=== PATIENT | male | born 1945 | race Caucasian/White ===

== ENCOUNTER → 2016-10-11 | Outpatient (CLI) | payer MEDICARE, BC ==
[~2016-10-11] MED LIST: CALCIUM ASCORB500 MG PO; MUCINEX 60600 MG/TA1 PO; OMEGA 31000 MG PO; ZYRTEC 10MG10 MG PO
== END ==
LOC: ZCOL.LAB 14:46
DX: Z01.812 Encounter for preprocedural laboratory examination (principal); Z86.14 Personal history of Methicillin resistant Staphylococcus aureus infection

== ENCOUNTER 2018-12-18 11:02 | Emergency (ER) | payer MEDICARE, BC ==
[2006-03-22 11:53] VITALS: BP 146/87
[~2018-12-18] VITALS: Ht 185.4 cm; Wt 81.4 kg
[2018-12-18 11:10] VITALS: BP 126/64; TEMP 97.7
[2018-12-18] MEDS ORDERED: ZESTRIL 5MG5 MG (11:32)
[2018-12-18] MEDS ORDERED: TOPROL XL 25MG25 MG (11:32)
[2018-12-18] MEDS ORDERED: LIPITOR 80MG80 MG (11:33)
[2018-12-18 11:48] VITALS: PULSE 89
== END 2018-12-18 11:49 | disposition home or self-care (01) ==
LOC: COL.ER 11:02
DX: K40.90 Unilateral inguinal hernia, without obstruction or gangrene, not specified as recurrent (principal); I25.10 Atherosclerotic heart disease of native coronary artery without angina pectoris; I10 Essential (primary) hypertension; Z90.89 Acquired absence of other organs

== ENCOUNTER 2018-12-31 10:23 | Day surgery (SDC) | payer MEDICARE, BC ==
[2006-03-22 11:53] VITALS: BP 146/87
[~2018-12-31] VITALS: Ht 185.4 cm; Wt 80.5 kg
[~2018-12-31 10:23] MED LIST changes: +LIPITOR 80MG80 MG; +MASON NATURAL1200 MG PO; -OMEGA 31000 MG PO; +TOPROL XL 25MG25 MG PO; +ZESTRIL 5MG5 MG PO
[2018-12-31 11:49] VITALS: BP 111/72; PULSE 61; TEMP 98.1
[2018-12-31] MEDS ORDERED: ASPIRIN E.C. 8181 MG PO (11:56)
[2018-12-31] MEDS ORDERED: TRIAMCINOLONE A15 GM TP (11:57)
[2018-12-31] MEDS ORDERED: MOBIC 7.5MG7.5 MG PO (11:57)
[2018-12-31] MEDS ORDERED: VOLTAREN GEL 1%1 TU TP (11:58)
[2018-12-31] MEDS ORDERED: UVA URSI PO (11:59)
[2018-12-31] MEDS ORDERED: SUPER BETA PO (11:59)
[2018-12-31] MEDS ORDERED: MULTI VITAMINS1 TAB PO (12:00)
[2018-12-31] MEDS ORDERED: MIRALAX PA17 GM/Dose PO (12:00)
[2018-12-31 15:00] VITALS: BP 137/64; PULSE 64; TEMP 97.7
--- NOTE | 2018-12-31 15:00 | NUR ---
Pt to [facility] bay 3 via cart from PACU. Pt drowsy but awake. Pt denies pain or nausea. Muffin and pepsi given per pt request. Family in room. Bandaids to abdomen x3 are clean, dry, and intact. Will continue to monitor. Call light within reach.
[2018-12-31 15:15] VITALS: BP 140/60; PULSE 69
--- NOTE | 2018-12-31 15:15 | NUR ---
Pt tolerating food and fluids without difficulties. Family leaving to [facility] prescriptions and will be back. Call light within reach.
[2018-12-31 15:30] VITALS: BP 146/71; PULSE 68
--- NOTE | 2018-12-31 15:30 | NUR ---
Pt resting. More soda given. Will continue to monitor.
[2018-12-31 15:45] VITALS: BP 159/65; PULSE 66
--- NOTE | 2018-12-31 15:45 | NUR ---
Pt c/o soreness to RLQ and upper abdomen. Pt rates pain 3/10. Will provide pain medication as to help with pain for car ride home. Pt ok with this. Call light within reach.
--- NOTE | 2018-12-31 15:55 | NUR ---
Tylenol 1000mg po and Oxycodone 5mg po given per orders. Will continue to monitor.
[2018-12-31] MEDS ORDERED: TYLENOL 500MG500 MG PO (16:01)
[2018-12-31] MEDS ORDERED: ROXICODONE 55 MG/TAB PO (16:02)
[2018-12-31 16:15] VITALS: BP 137/73; PULSE 66
--- NOTE | 2018-12-31 16:15 | NUR ---
Pt continues to rest. Pt dozes on and off. Pt denies needs at this time.
--- NOTE | 2018-12-31 16:45 | NUR ---
Pt up to restroom with stand by assistance. Gait steady. Pt unable to void. Pt back to room. Bladder scan done with only 65ml shown. notified and orders to go ahead and DC given. Pt and family voice understanding. Pt reports pain is tolerable.
--- NOTE | 2018-12-31 17:00 | NUR ---
Discharge instructions reviewed. Pt voices understanding. IV site discontinued with all parts intact. Pt up to dress with 's assistance. Call light within reach.
--- NOTE | 2018-12-31 17:10 | NUR ---
Pt escorted to private car via wheel chair. Pt accompanied home by his son and .
== END 2018-12-31 17:10 | disposition home or self-care (01) ==
LOC: SDCO 10:23
DX: K40.90 Unilateral inguinal hernia, without obstruction or gangrene, not specified as recurrent (principal); Z79.82 Long term (current) use of aspirin; Z95.5 Presence of coronary angioplasty implant and graft; I10 Essential (primary) hypertension; E78.00 Pure hypercholesterolemia, unspecified; Z80.8 Family history of malignant neoplasm of other organs or systems; Z88.3 Allergy status to other anti-infective agents; Z88.8 Allergy status to other drugs, medicaments and biological substances; I25.2 Old myocardial infarction
CPT/HCPCS: C1781; J0690; J1100; J2405; J2704; J2710; J3010; J7120

== ENCOUNTER 2019-10-17 14:30 | Emergency (ER) | payer MEDICARE, BC ==
[2006-03-22 11:53] VITALS: BP 146/87
[~2019-10-17] VITALS: Ht 185.4 cm; Wt 84.9 kg
[~2019-10-17 14:30] MED LIST changes: +ASPIRIN E.C. 8181 MG PO; +MIRALAX PA17 GM/Dose PO; +MOBIC 7.5MG7.5 MG PO; +MULTI VITAMINS1 TAB PO; +ROXICODONE 55 MG/TAB PO; +SUPER BETA PO; +TRIAMCINOLONE A15 GM TP; +TYLENOL 500MG500 MG PO; +UVA URSI PO; +VOLTAREN GEL 1%1 TU TP
[2019-10-17 14:35] VITALS: TEMP 98.3
[2019-10-17] MEDS ORDERED: ALEVE 220MG220 MG PO (14:47)
[2019-10-17] MEDS ORDERED: NORCO 325 MG-51 TAB PO (15:58)
[2019-10-17 16:15] VITALS: BP 117/65; PULSE 62
== END 2019-10-17 16:18 | disposition home or self-care (01) ==
LOC: COL.ER 14:30
DX: S22.32XA Fracture of one rib, left side, initial encounter for closed fracture (principal); S43.102A Unspecified dislocation of left acromioclavicular joint, initial encounter; I10 Essential (primary) hypertension; E78.5 Hyperlipidemia, unspecified; Z95.5 Presence of coronary angioplasty implant and graft; Z79.82 Long term (current) use of aspirin; W17.89XA Other fall from one level to another, initial encounter
CPT/HCPCS: A9284

== ENCOUNTER 2020-01-07 11:16 | Inpatient (IN) | payer MEDICARE, BC ==
[~2020-01-07] VITALS: Ht 185.4 cm; Wt 81.6 kg
[~2020-01-07 11:16] MED LIST changes: +ALEVE 220MG220 MG PO; +NORCO 325 MG-51 TAB PO
[2020-01-07 12:01] LABS: PROTHROMBIN TIME 11.8 SECONDS (9.7-12.8)
[2020-01-07 12:04] LABS: PARTIAL THROMBOPLASTIN TIME 32.8 SECONDS (26.0-37.0)
[2020-01-07 12:08] LABS: ALANINE AMINOTRANSFERASE 33 U/L (4-49); ALBUMIN 3.7 gm/dL (3.5-5.0); ALKALINE PHOSPHATASE 113 U/L (50-136); ANION GAP 7 mmol/L (7-16); AST,SGOT 55 U/L (15-37); BASO % 0.3 % (0.0-2.0); BILIRUBIN,TOTAL 1.3 mg/dL (0.0-1.0); BLOOD UREA NITROGEN 32 mg/dL (9-20); CALCIUM 9.2 mg/dL (8.4-10.2); CARBON DIOXIDE 24 mmol/L (22-30); CHLORIDE 105 mmol/L (98-107); CREATININE, serum 1.23 (0.66-1.25); EOS # 0.2 (0.0-0.7); EOS % 1.6 % (0-4.0); GLUCOSE 168 mg/dL (74-106); GRAN # 9.3 (1.4-6.5); GRAN % 75.2 % (42.2-75.2); HEMATOCRIT 38.9 % (42.0-52.0); HEMOGLOBIN 12.8 g/dl (13.5-18.0); LIPASE 455 U/L (23-300); LYMPH # 1.5 (1.2-3.4); MAGNESIUM 2.2 mg/dL (1.6-2.3); MEAN CELL VOLUME 92 fl (80.0-100.0); MEAN CORPUSCULAR HEMOGLOBIN 30 pg (27.0-31.0); MEAN CORPUSCULAR HGB CONC 33 g/dl (33.0-37.0); MEAN PLATELET VOLUME 9.7 fl (7.4-10.4); MONO # 1.3 (0.1-0.6); MONO % 10.6 % (1.7-9.3); PLATELET COUNT 188 K/mm3 (130-400); POTASSIUM 4.6 mmol/L (3.4-5.0); RED BLOOD COUNT 4.23 M/mm3 (4.20-5.60); REDCELL DISTRIBUTION WIDTH-CV 12.7 % (11.5-14.5); SODIUM 137 mmol/L (137-145); TOTAL PROTEIN 6.5 gm/dL (6.4-8.2)
[2020-01-07 12:22] LABS: TROPONIN-I < 0.012 ng/mL (0.000-0.035)
[2020-01-07 13:16] LABS: COLLECTION METHOD CLEAN CATCH
[2020-01-07 13:45] LABS: MUCOUS Present /lpf; PH 5 (5-8); SQUAMOUS EPITHELIAL None Seen /hpf; URINE APPEARANCE Clear; URINE BACTERIA Rare /hpf; URINE BILIRUBIN Negative (NEGATIVE); URINE BLOOD Negative (NEGATIVE); URINE COLOR Yellow; URINE GLUCOSE Negative (NEGATIVE); URINE KETONE Negative (NEGATIVE); URINE LEUKOCYTE ESTERASE Negative (NEGATIVE); URINE NITRATE Negative (NEGATIVE); URINE PROTEIN(semi-quant) Negative (NEGATIVE); URINE UROBILINOGEN Negative (NEGATIVE)
[2020-01-07 15:50] VITALS: BP 119/68; PULSE 57; TEMP 97.6
--- NOTE | 2020-01-07 17:13 | NUR ---
Patient alert and oriented, answers questions appropriately. See assessment. Lungs decreased in LLL, clear in all other lobes. No c/o SOA, no use of accessory muscles noted. Chest tube in place to waterseal to LLL, dressing intact. Chest tube protocol reviewed with patient. Vaseline gauze, gauze, sterile water and clamps at bedside. No c/o at this time.
--- NOTE | 2020-01-07 17:35 | NUR ---
850ml bloody drainage recorded from chest tube. Bleeding noted at chest tube site, pressure dressing reinforced.
[2020-01-07 18:35] LABS: HEMATOCRIT 33.8 % (42.0-52.0)
--- NOTE | 2020-01-07 19:00 | NUR ---
DRESSING TO LEFT CHEST TUBE SITE LEAKING, CHANGED AND PRESSURE DRSG APPLIED. LEFT CHEST TUBE TO WATERSEAL WITH GOOD TIDALING WITH INSPIRATION.
[2020-01-07 20:50] VITALS: BP 109/51; PULSE 55; TEMP 97.5
--- NOTE | 2020-01-07 21:00 | NUR ---
PT AWAKE, ALERT AND ORIENTED X4. DRSG REMAINS DRY TO LEFT CHEST TUBE SITE. SL X3, FLUSHED ALL AT THIS TIME. DENIES NEEDS AT THIS TIME. REVIEWED HOME MEDS AND CALLED DR FLOYD FOR DIET CHANGE AND RENEW OF HOME MEDS. PT NOW GENERAL DIET.
[2020-01-07 23:23] VITALS: BP 114/54; PULSE 61; TEMP 97.9
--- NOTE | 2020-01-08 00:05 | NUR ---
PT AWAKE, COMPLAINS OF BACK PAIN, LEFT CHEST TUBE PAIN. MEDICATED WITH NORCO 1 TAB AT THIS TIME. PT IS ALERT AND ORIENTED X4.
[2020-01-08 03:46] VITALS: BP 104/58; PULSE 56; TEMP 97.6
--- NOTE | 2020-01-08 06:00 | NUR ---
Has 120cc of drainage from chest tube this shift. Dressing remains dry. Denies pain at this time.
[2020-01-08 06:29] LABS: HEMOGLOBIN 10.9 g/dl (13.5-18.0)
[2020-01-08 06:30] LABS: HEMATOCRIT 33.4 % (42.0-52.0)
[2020-01-08 07:16] VITALS: BP 120/59; PULSE 69; TEMP 97.3
--- NOTE | 2020-01-08 08:00 | NUR ---
Patient called to report bleeding from his chest tube site. Upon inspection dressing was mostly intact, blood was draining along the tube. Reinforced that area of the dressing and helped patient clean up. Patient denies pain or further needs at this time, call light within reach.
--- NOTE | 2020-01-08 12:08 | NUR ---
First visit from the vice president of procurement. No needs right now.
[2020-01-08 12:12] VITALS: BP 108/60; PULSE 62; TEMP 98.7
--- NOTE | 2020-01-08 14:40 | NUR ---
Computer Operations Specialist met with patient to discuss discharge planning. Patient lives out by [address] with his , [employer] (ph#[phone] or [phone]). Patient sees Dr. Velásquez for primary care and obtains medications from [facility] with no difficulties. Patient does not use any DME and reports independence with ADLS. Patient states his DPOA-HC is his , [employer] then it goes to his three children. Patient's son Miguel lives by [place], his son Thee lives in [place], and his daughter Kay lives near [place], [place]. Patient plans to return home upon discharge with [employer] providing transportation. No additional needs at this time.
--- NOTE | 2020-01-08 16:44 | NUR ---
Dressing became saturated and began leaking. Dressing changed and tube anchored to skin with foam tape. Total output today has been approximately 50 ml. Patient continues to deny pain unless coughing or sneezing. Denies further needs at this time, call light within reach.
[2020-01-08 17:21] VITALS: BP 121/49; PULSE 64; TEMP 99.8
--- NOTE | 2020-01-08 18:20 | NUR ---
Chest tube removed by Dr. Posadas. Occlusive dressing in place, dressing is CDI. Patient denies pain or needs at this time, call light within reach.
[2020-01-08 20:57] VITALS: BP 125/57; PULSE 61; TEMP 98.2
[2020-01-08 23:46] VITALS: BP 109/56; PULSE 63; TEMP 98
[2020-01-09 03:14] VITALS: BP 133/50; PULSE 66; TEMP 97.5
--- NOTE | 2020-01-09 04:17 | NUR ---
INT to left AC and right AC discontinued at about 2100 last evening. Catheters intact. INT to DEVON left in place until discharge. Telemetry orders discontinued, so this was removed as well. Occlusive dressing to left chest noted. Clean, dry, and intact. Lung sounds clear. Denies any pain throughout the night. Noted to sleep well. Will continue to monitor patient.
[2020-01-09 08:01] VITALS: BP 146/115; PULSE 63; TEMP 97.6
--- NOTE | 2020-01-09 09:45 | NUR ---
Patient alert and oriented, answers questions appropriately. See assessment. Lungs CTA, no use of accessory muscles noted. VSS. No use of oxygen needed. Previous chest tube site with dressing CDI. No c/o pain or discomfort.
--- NOTE | 2020-01-09 10:41 | NUR ---
Patients' called several times, requests that patient not be discharged for several days r/t doesn't not think patient will tell her or their children if he is not feeling well. Relayed to that patient has no reason to remain in hospital and Dr Posadas will likely be discharging patient today. becomes annoyed, states "Can you give him a medication to make him sleepy so he can't do anything?" Relayed to that we cannot send patient home with medications to make him drowsy, especially if they are not needed. then states "Well, what are you going to do if he gets home, goes back doing work and gets hurt again?" Patient also requests that Dr Posadas be notified that patient does not listen to her and will do whatever he wants. Relayed to that patient is alert and oriented and able to make his own decisions, we can suggest what we would like him to do upon discharge, but it was his decision to comply. continues to be irate and request patient be kept in the hospital until he can "do what he is suppose to".
[2020-01-09 11:53] VITALS: BP 122/64; PULSE 58; TEMP 97.9
--- NOTE | 2020-01-09 13:45 | NUR ---
Discharge instructions reviewed with patient, verbalized understanding. Discharged ambulatory to auto/home with family at 1345.
== END 2020-01-09 13:45 | disposition home or self-care (01) | DRG 200 ==
LOC: COL.ER 11:16 → MEDICAL 14:00 → COL.ER 14:00 → MEDICAL 01-09 13:45
PROVIDERS: Emergency Medicine; ADMIT Surgery
PROC: 0W9B30Z Drainage of Left Pleural Cavity with Drainage Device, Percutaneous Approach (ICD-10-PCS; principal; 2020-01-07)
DX: S27.1XXA Traumatic hemothorax, initial encounter (principal); S22.029A Unspecified fracture of second thoracic vertebra, initial encounter for closed fracture; I95.9 Hypotension, unspecified; I25.10 Atherosclerotic heart disease of native coronary artery without angina pectoris; W19.XXXA Unspecified fall, initial encounter
CPT/HCPCS: J7030; J7120; Q9967

== ENCOUNTER 2020-07-11 13:21 | Emergency (ER) | payer MEDICARE, BC ==
[2006-03-22 11:53] VITALS: BP 146/87
[~2020-07-11] VITALS: Ht 185.4 cm; Wt 82.3 kg
[2020-07-11 13:28] VITALS: TEMP 97.9
[2020-07-11] MEDS ORDERED: MEDROL 4MG DOSPA4 MG PO (14:45)
[2020-07-11 15:00] VITALS: BP 141/75; PULSE 78
== END 2020-07-11 15:05 | disposition home or self-care (01) ==
LOC: COL.ER 13:21
DX: M54.16 Radiculopathy, lumbar region (principal); I10 Essential (primary) hypertension; Z79.82 Long term (current) use of aspirin; X50.9XXA Other and unspecified overexertion or strenuous movements or postures, initial encounter
CPT/HCPCS: J1100

== ENCOUNTER → 2020-08-16 | Outpatient (CLI) | payer MEDICARE, BC ==
[2006-03-22 11:53] VITALS: BP 146/87
[~2020-08-16] MED LIST changes: +MEDROL 4MG DOSPA4 MG PO; -MULTI VITAMINS1 TAB PO; +ONE-A-DAY ESSE1 EACH PO; +PROSVENT PO; +TYLENOL PM EXTR1 TA1 PO; +[UNRECOGNIZED DRUG - OTHER] PO
[2020-08-16 14:01] VITALS: BP 139/72; PULSE 658
[2020-08-16 14:54] VITALS: BP 146/83; PULSE 62
== END ==
LOC: COL.RAD 13:30
DX: M51.36 Other intervertebral disc degeneration, lumbar region (principal)
CPT/HCPCS: J3301

== ENCOUNTER → 2021-02-10 | Outpatient (CLI) | payer MEDICARE, BC ==
[2006-03-22 11:53] VITALS: BP 146/87
[~2021-02-10] VITALS: Ht 185.4 cm; Wt 80.8 kg
[~2021-02-10] MED LIST changes: +CORICIDIN COUGH1 TAB PO; +CURCUMIN95% PO
[2021-02-10 06:49] VITALS: BP 118/71; PULSE 62
[2021-02-10 08:26] VITALS: BP 146/84; PULSE 60
== END ==
LOC: COL.RAD 06:26
DX: M51.36 Other intervertebral disc degeneration, lumbar region (principal)
CPT/HCPCS: J3301

== ENCOUNTER → 2021-02-24 | Outpatient (CLI) | payer MEDICARE, BC ==
[2006-03-22 11:53] VITALS: BP 146/87
[~2021-02-24] VITALS: Ht 185.4 cm; Wt 80.3 kg
[2021-02-24 07:25] VITALS: BP 130/71; PULSE 61
[2021-02-24 08:12] VITALS: BP 126/77; PULSE 57
== END ==
LOC: COL.RAD 06:30
DX: M54.31 Sciatica, right side (principal)
CPT/HCPCS: J3301

== ENCOUNTER 2021-10-06 11:43 | Inpatient (IN) | payer MEDICARE, BC ==
[~2021-10-06] VITALS: Ht 185.4 cm; Wt 83.4 kg
[2021-10-06 14:56] LABS: BASO % 0.3 % (0.0-2.0); EOS # 0.1 K/mm3 (0.0-0.7); EOS % 0.7 % (0.0-4.0); GRAN # 8.5 K/mm3 (1.4-6.5); GRAN % 82.8 % (42.2-75.2); HEMATOCRIT 38.7 % (42.0-52.0); HEMOGLOBIN 12.5 g/dl (13.5-18.0); LYMPH # 0.6 K/mm3 (1.2-3.4); LYMPH % 6.1 % (20.0-51.0); MEAN CELL VOLUME 91 fl (80.0-100.0); MEAN CORPUSCULAR HEMOGLOBIN 29 pg (27-31); MEAN CORPUSCULAR HGB CONC 32 g/dl (33.0-37.0); MEAN PLATELET VOLUME 9.5 fl (7.4-10.4); MONO % 9.7 % (1.7-9.3); PLATELET COUNT 183 K/mm3 (130-400); RED BLOOD COUNT 4.26 M/mm3 (4.20-5.60); REDCELL DISTRIBUTION WIDTH-CV 12.6 % (11.5-14.5)
[2021-10-06 15:00] LABS: INR 1.1 (0.8-3.0); PROTHROMBIN TIME 12.2 SECONDS (9.7-12.8)
[2021-10-06 15:17] LABS: ALBUMIN 3.4 gm/dL (3.4-4.8); CALCIUM 8.7 mg/dL (8.4-10.2); CREATININE, serum 0.81 mg/dL (0.72-1.25); POTASSIUM 4.2 mmol/L (3.5-4.5); TOTAL PROTEIN 6.4 gm/dL (6.2-8.1)
[2021-10-06 15:30] VITALS: BP 151/61; PULSE 53; TEMP 98.1
--- NOTE | 2021-10-06 15:30 | NUR ---
PATIENT ARRIVED TO FLOOR FROM ER WITH LEFT HIP FX. A&O. VSS. LLE IS EXTERNALLY ROTATED AND SHORTENED. PATIENT REPORTS MINIMAL PAIN AT REST BUT HAS SHARP PAINS WITH MOVEMENT. ER GAVE PAIN MEDS SHORTLY BEFORE TRANSFER TO FLOOR. ORTHO SAW PATIENT IN ER. SURGERY PENDING IN AM. AHA DIET, NPO AFTER MIDNIGHT. RIGHT AC IV TO INT. STEWART TO DD WITH SMALL AMOUNTS OF KESHAWN COLORED URINE NOTED. SCD'S TO BLE. POSITIVE PEDAL PULSES TO BLE. HEAD TO TOE ASSESSMENT COMPLETE. ORIENTED TO ROOM. AT BEDSIDE. NEW ORDERS FOR TELE, PLACED. NO OTHER NEEDS AT THIS TIME. CALL LIGHT IN REACH.
[2021-10-06 19:21] LABS: COLLECTION METHOD CLEAN CATCH
[2021-10-06 19:32] LABS: MUCOUS Present (NOT PRESENT); PH 7 (5-8); SQUAMOUS EPITHELIAL None Seen /hpf (0-10); URINE APPEARANCE Cloudy (CLEAR/HAZY); URINE BACTERIA Rare /hpf (NONE SEEN); URINE BILIRUBIN Negative (NEGATIVE); URINE BLOOD 1+ (NEGATIVE); URINE COLOR Yellow (YELLOW); URINE GLUCOSE Negative (NEGATIVE); URINE KETONE Trace (NEGATIVE); URINE LEUKOCYTE ESTERASE Negative (NEGATIVE); URINE NITRATE Negative (NEGATIVE); URINE PROTEIN(semi-quant) 1+ (NEGATIVE); URINE UROBILINOGEN Negative (NEGATIVE)
--- NOTE | 2021-10-06 20:10 | NUR ---
Pt. laying in bed. Pt. is A&OX3, assessment complete. INT to rt. ac patent. Pt. denies pain or other needs, call light within reach.
[2021-10-06 20:15] VITALS: BP 133/67; PULSE 74; TEMP 97.9
[2021-10-06 23:59] VITALS: BP 123/59; PULSE 62; TEMP 98.1
[2021-10-07] VITALS (10 sets, daily range): BP systolic 106–142; BP diastolic 56–77; PULSE 59–81; TEMP 97.9–98.6
[2021-10-07 07:39] LABS: BASO % 0.2 % (0.0-2.0); EOS # 0.3 K/mm3 (0.0-0.7); EOS % 4.1 % (0.0-4.0); GRAN # 5.1 K/mm3 (1.4-6.5); GRAN % 61.5 % (42.2-75.2); HEMATOCRIT 37.2 % (42.0-52.0); HEMOGLOBIN 11.9 g/dl (13.5-18.0); LYMPH # 1.3 K/mm3 (1.2-3.4); LYMPH % 15.4 % (20.0-51.0); MEAN CELL VOLUME 94 fl (80.0-100.0); MEAN CORPUSCULAR HEMOGLOBIN 30 pg (27-31); MEAN CORPUSCULAR HGB CONC 32 g/dl (33.0-37.0); MONO # 1.5 K/mm3 (0.1-0.6); MONO % 18.4 % (1.7-9.3); PLATELET COUNT 169 K/mm3 (130-400); RED BLOOD COUNT 3.97 M/mm3 (4.20-5.60); REDCELL DISTRIBUTION WIDTH-CV 12.7 % (11.5-14.5)
[2021-10-07 08:05] LABS: CALCIUM 8.3 mg/dL (8.4-10.2); CREATININE, serum 0.74 mg/dL (0.72-1.25)
--- NOTE | 2021-10-07 10:09 | NUR ---
SW attempted to complete intake. SW informed by nurse that patient would be in surgery for a few hours. SW will continue to follow to complete intake.
--- NOTE | 2021-10-07 14:04 | NUR ---
Director Of Cardiac Rehabilitation followed up with patient post surgery to discuss discharge planning. Patient lives in [facility], near [place] with his , [employer] (ph#[phone]) and sees Dr. Velásquez for primary care. Patient obtains medications from [facility] with no difficulties. Patient does not use any DME and reports independence with ADLS. Patient remarks that he needs to get home soon to [facility]. SW discussed the possible need for post acute rehab and patient is open to this, but wants to see how he does with PT/OT before making any decisions. Discharge Plan: Pending PT/OT eval to determine discharge plan
--- NOTE | 2021-10-07 18:31 | NUR ---
Pt denied any pain after surgery, dressing to site unchanged from post surgery. Small amount of blood present. Discussed rehab with patient as well as patient safety while in hospital. SCD's in place to bilateral lower legs. No needs at this time. Call light within reach.
--- NOTE | 2021-10-07 21:45 | NUR ---
Pt. laying in bed. Pt. is A&OX3, assessment complete. INT to rt. ac. Pt. reports numbness to LLE. Pt. denies any other pain at this time. Gauze dressings x2 to lt. thigh. P. denies further needs.
[2021-10-08 00:18] VITALS: BP 106/58; PULSE 68; TEMP 97.6
[2021-10-08 03:57] VITALS: BP 145/76; PULSE 76; TEMP 98.2
[2021-10-08 06:43] LABS: HEMOGLOBIN 10.6 g/dl (13.5-18.0)
[2021-10-08 06:52] LABS: HEMATOCRIT 32.4 % (42.0-52.0)
[2021-10-08 06:58] LABS: CALCIUM 8.4 mg/dL (8.4-10.2); CREATININE, serum 0.85 mg/dL (0.72-1.25); POTASSIUM 4.5 mmol/L (3.5-4.5)
[2021-10-08 07:10] LABS: HEMOGLOBIN 10.6 g/dl (13.5-18.0); MEAN CELL VOLUME 92 fl (80.0-100.0); MEAN CORPUSCULAR HEMOGLOBIN 30 pg (27-31); MEAN CORPUSCULAR HGB CONC 33 g/dl (33.0-37.0); MEAN PLATELET VOLUME 10.1 fl (7.4-10.4); PLATELET COUNT 165 K/mm3 (130-400); RED BLOOD COUNT 3.55 M/mm3 (4.20-5.60); REDCELL DISTRIBUTION WIDTH-CV 12.7 % (11.5-14.5)
[2021-10-08 07:19] LABS: HEMATOCRIT 32.5 % (42.0-52.0)
[2021-10-08 08:00] VITALS: BP 119/46; PULSE 70; TEMP 98.5
[2021-10-08 08:01] LABS: BAND 1 % (0-10); EOSINOPHIL 1 % (0-4); LYMPHOCYTE 11 % (20.0-51.0); NEUTROPHILS 71 % (42.0-75.2); PLATELET ESTIMATE NORMAL (NORMAL)
--- NOTE | 2021-10-08 09:09 | NUR ---
Pt assessment complete. Pt is sitting up in bed upon entry, he is A/O x4. His breathing is even and unlabored on RA. He denies any SOB. No N/V. Denies pain to L hip at rest. Assisted patient to transfer to recliner. Minimal weight bearing to LLE visualized. Dressing to L hip unchanged from previous assessment, small amount of dried blood to lower dressing. Ice in place to hip. Monica DD. No needs at this time. Call light within reach.
[2021-10-08 12:07] VITALS: BP 107/48; PULSE 72; TEMP 98.4
[2021-10-08 15:27] VITALS: BP 120/42; PULSE 70; TEMP 98
--- NOTE | 2021-10-08 18:32 | NUR ---
Pt up to the recliner today, increased soreness with movement. Pain better controlled at rest. Tylenol relieved pain. Monica PACE. Pt back in bed, call light within reach.
[2021-10-08 20:00] VITALS: BP 108/51; PULSE 70; TEMP 98.1
--- NOTE | 2021-10-08 21:25 | NUR ---
Pt. sitting up in bed. Pt. is A&OX3, assessment complete. INT to rt. ac patent. Pt. denies need for pain meds at this time. Dressin to lt. hip cdi. Pt. denies further needs.
[2021-10-09] VITALS (7 sets, daily range): BP systolic 105–149; BP diastolic 44–87; PULSE 65–81; TEMP 98.1–99.1
[2021-10-09 06:36] LABS: MEAN CELL VOLUME 90 fl (80.0-100.0); MEAN CORPUSCULAR HEMOGLOBIN 30 pg (27-31); MEAN CORPUSCULAR HGB CONC 33 g/dl (33.0-37.0); MEAN PLATELET VOLUME 9.6 fl (7.4-10.4); PLATELET COUNT 175 K/mm3 (130-400); RED BLOOD COUNT 3.37 M/mm3 (4.20-5.60)
[2021-10-09 06:45] LABS: HEMATOCRIT 30.3 % (42.0-52.0)
[2021-10-09 06:47] LABS: CALCIUM 8.3 mg/dL (8.4-10.2); CREATININE, serum 0.87 mg/dL (0.72-1.25); POTASSIUM 4.5 mmol/L (3.5-4.5)
[2021-10-09 07:31] LABS: BAND 2 % (0-10); EOSINOPHIL 1 % (0-4); LYMPHOCYTE 14 % (20.0-51.0); NEUTROPHILS 73 % (42.0-75.2); OVALOCYTES 1+; PLATELET ESTIMATE NORMAL (NORMAL)
--- NOTE | 2021-10-09 11:46 | NUR ---
At approximately 1105 the patients IV site was bleeding. Tegaderm was removed and it appeared that the IV catheter was no longer in place. Physician was notified and discontinued the IV as well as telemetry. Patient does not express any other complaints at this time. Call light within reach.
--- NOTE | 2021-10-09 12:16 | NUR ---
Patient resting in bed. Head to toe assessment completed. Alert and oriented X3. Vital signs are within normal limits. Anderson catheter in place with 250 ml of clear, yellow urine. Catheter removed at 0830. No complaints of N/V, tolerating oral medication and food well. Patient on the surgical floor for surgical fixation of left hip. Raudel hose in place. No other complaints at this time, call light within reach
--- NOTE | 2021-10-09 15:24 | NUR ---
Tech Brazer Tester and SW student followed up with patient to review PT recommendation for post acute rehab, specifically [facility]. Patient is agreeable to have referral sent to [facility] as well as the local SNFs: [facility], and [facility]. SW contacted each facility and faxed referral. SW attempted to contact patient's [employer] to provide update with no answer.
--- NOTE | 2021-10-09 21:14 | NUR ---
PATIENT DOING WELL TONIGHT. ALERT AND ORIENTED. DENIES PAIN CONTROL NEEDS AT THIS TIME. STATES HE IS HAVING SEVERE HEARTBURN. CALL TO [facility] ESPINOSA, AND PEPCID AND TUMS ORDERED AND GIVEN. TEDS IN PLACE, PT REFUSES SCDS. 75 MLS OF CLOUDY YELLOW URINE EMPTIED FROM URINAL. REFUSES ICE TONIGHT. X2 INCISIONS TO L HIP CDI WITH GAUZE AND TEGADERM DRESSING. CALL LIGHT WITHIN REACH. PATIENT RESTING IN BED.
[2021-10-10 04:01] VITALS: BP 130/65; PULSE 74; TEMP 98.4
[2021-10-10 07:18] LABS: MEAN CELL VOLUME 92 fl (80.0-100.0); MEAN CORPUSCULAR HGB CONC 33 g/dl (33.0-37.0); MEAN PLATELET VOLUME 9.5 fl (7.4-10.4); PLATELET COUNT 198 K/mm3 (130-400); RED BLOOD COUNT 3.28 M/mm3 (4.20-5.60)
[2021-10-10 07:20] LABS: HEMOGLOBIN 9.8 g/dl (13.5-18.0); MEAN CORPUSCULAR HEMOGLOBIN 30 pg (27-31)
[2021-10-10 07:23] LABS: CALCIUM 8.4 mg/dL (8.4-10.2); CREATININE, serum 0.75 mg/dL (0.72-1.25); POTASSIUM 4.1 mmol/L (3.5-4.5)
[2021-10-10 07:44] VITALS: BP 106/79; PULSE 72; TEMP 98.3
--- NOTE | 2021-10-10 08:00 | NUR ---
PATIENT IS A&O AND SITTING UP IN BEDSIDE CHAIR. CONTROLLED ATMOSPHERIC FURNACE BRAZER REPORTED PATIENT HAD LOTS OF PAIN LAST NIGHT AND MENTIONED REFUSING THERAPIES TODAY. NURSING EDUCATED PATIENT ABOUT PAIN MEDS & IMPORTANCE OF THERAPY. NOTIFIED, SEE NEW ORDERS. RATES PAIN IN LLE AT 6/10 IN CHAIR. GAVE PRN NORCO, TWO TABS FOR PAIN. LEFT HIP DRESSING IS CD&I WITH GAUZE & TEGADERM. TEDS TO BLE. SCD'S CURRENTLY OFF. POSITIVE PEDAL PULSES TO BLE. PT/OT CONSULTED. NO C/O N/V. BREAKFAST TRAY AT BEDSIDE. AM MEDS GIVEN. HEAD TO TOE ASSESSMENT COMPLETE. NO OTHER NEEDS AT THIS TIME. CALL LIGHT IN REACH.
[2021-10-10 08:22] LABS: EOSINOPHIL 2 % (0-4); LYMPHOCYTE 6 % (20.0-51.0); NEUTROPHILS 83 % (42.0-75.2); OVALOCYTES 1+; PLATELET ESTIMATE NORMAL (NORMAL)
[2021-10-10] MEDS ORDERED: ZYRTEC 10MG10 MG PO (09:48)
[2021-10-10] MEDS ORDERED: LIPITOR 80MG80 MG PO (09:48)
[2021-10-10] MEDS ORDERED: ZESTRIL 5MG5 MG PO (09:49)
[2021-10-10] MEDS ORDERED: TOPROL XL 25MG25 MG PO (09:49)
[2021-10-10] MEDS ORDERED: MASON NATURAL1200 MG PO (09:49)
[2021-10-10] MEDS ORDERED: ASPI325T6 PO (09:49)
[2021-10-10] MEDS ORDERED: OSCAL 500 TAB500 MG PO (09:51)
[2021-10-10] MEDS ORDERED: TYLENOL 500MG500 MG PO (09:51)
[2021-10-10] MEDS ORDERED: PROSVENT PO (09:52)
[2021-10-10] MEDS ORDERED: VITAMIN C500 MG PO (09:52)
[2021-10-10] MEDS ORDERED: MIRALAX PA17 GM/Dose PO (09:52)
[2021-10-10] MEDS ORDERED: ONE-A-DAY ESSE1 EACH PO (09:52)
[2021-10-10] MEDS ORDERED: ROXICODONE 55 MG/TAB PO (09:54)
[2021-10-10 11:16] VITALS: BP 116/50; PULSE 68; TEMP 97.5
--- NOTE | 2021-10-10 11:50 | NUR ---
OBTAINED COVID SWAB PER ORDERS, SENT TO LAB. CALLED RADIOLOGY FOR X-RAY, SEE ORDERS. PENDING RESULTS, PATIENT MAY DISCHARGE TO [facility] LATER TODAY.
--- NOTE | 2021-10-10 13:26 | NUR ---
Rehab Tech was contacted by Isa at [facility] who advised they can accept patient today for a skilled stay. FRAN met with patient who is agreeable to discharge to [facility] today. FRAN faxed clinical updates, discharge orders, and negative covid results to Isa at [facility]. Transport time was set for 1430. FRAN met with patient and his , [employer] to provide transport time. Both are in agreement. Discharge Plan: [facility] today
--- NOTE | 2021-10-10 14:50 | NUR ---
PATIENT DISCHARGING TO [facility] VIA WC WITH THE [facility]. AT BEDSIDE. GAVE INFO PACKET & BELONGINGS TO LACE AND TEXTILES RESTORER. CALLED REPORT TO [facility] NURSE. NO IV SITE. PATIENT IS PACKED, DRESSED AND DISCHARGED.
== END 2021-10-10 14:50 | DRG 482 ==
LOC: COL.ER 11:43 → SURG 14:11
PROVIDERS: Orthopaedic Surgery; Physician Assistant; Student in an Organized Health Care Education/Training Program; ADMIT Internal Medicine
PROC: 0QH734Z Insertion of Internal Fixation Device into Left Upper Femur, Percutaneous Approach (ICD-10-PCS; principal; 2021-10-07 08:00)
DX: S72.142A Displaced intertrochanteric fracture of left femur, initial encounter for closed fracture (principal); I25.10 Atherosclerotic heart disease of native coronary artery without angina pectoris; I10 Essential (primary) hypertension; E78.5 Hyperlipidemia, unspecified; R32 Unspecified urinary incontinence; Z20.822 Contact with and (suspected) exposure to COVID-19; W01.10XA Fall on same level from slipping, tripping and stumbling with subsequent striking against unspecified object, initial encounter; Y93.89 Activity, other specified; Y92.89 Other specified places as the place of occurrence of the external cause; Z95.5 Presence of coronary angioplasty implant and graft; Z79.82 Long term (current) use of aspirin; Z23 Encounter for immunization
CPT/HCPCS: 99223-AI; 99232-AI; 99239; A4314; A9284; C1713; J0690; J1100; J1885; J2250; J2405; J2704; J2795; J3010; J7120

== ENCOUNTER 2022-01-02 07:55 | Emergency (ER) | payer MEDICARE, BC ==
[~2022-01-02] VITALS: Ht 185.4 cm; Wt 86.4 kg
[~2022-01-02 07:55] MED LIST changes: +ASPI325T6 PO; +LIPITOR 80MG80 MG PO; +OSCAL 500 TAB500 MG PO; +VITAMIN C500 MG PO
[2022-01-02 08:19] VITALS: TEMP 97.9
[2022-01-02 09:42] LABS: BASO % 0.3 % (0.0-2.0); EOS # 0.2 K/mm3 (0.0-0.7); EOS % 1.9 % (0.0-4.0); GRAN # 9.2 K/mm3 (1.4-6.5); GRAN % 84.8 % (42.2-75.2); HEMATOCRIT 48.8 % (42.0-52.0); HEMOGLOBIN 15.6 g/dl (13.5-18.0); LYMPH # 0.6 K/mm3 (1.2-3.4); LYMPH % 5.7 % (20.0-51.0); MEAN CELL VOLUME 87 fl (80.0-100.0); MEAN CORPUSCULAR HEMOGLOBIN 28 pg (27-31); MEAN CORPUSCULAR HGB CONC 32 g/dl (33.0-37.0); MONO # 0.8 K/mm3 (0.1-0.6); MONO % 6.9 % (1.7-9.3); PLATELET COUNT 212 K/mm3 (130-400); RED BLOOD COUNT 5.59 M/mm3 (4.20-5.60); REDCELL DISTRIBUTION WIDTH-CV 14.3 % (11.5-14.5)
[2022-01-02 10:00] LABS: BILIRUBIN,TOTAL 1.8 mg/dL (0.2-1.2); CALCIUM 8.9 mg/dL (8.4-10.2); CREATININE, serum 0.88 mg/dL (0.72-1.25); POTASSIUM 4.1 mmol/L (3.5-4.5); TOTAL PROTEIN 6.9 gm/dL (6.2-8.1)
[2022-01-02 10:06] LABS: TROPONIN-I 0.017 ng/mL (0.00-0.033)
[2022-01-02] MEDS ORDERED: CARAFATE 1GM1 G PO (10:57)
[2022-01-02 11:22] VITALS: BP 132/76; PULSE 96
== END 2022-01-02 11:22 | disposition home or self-care (01) ==
LOC: COL.ER 07:55
PROVIDERS: Emergency Medicine
DX: K29.71 Gastritis, unspecified, with bleeding (principal); Z98.890 Other specified postprocedural states; Z90.49 Acquired absence of other specified parts of digestive tract